=== PATIENT | female | born 2000 | race Two or more races ===

== ENCOUNTER 2024-10-10 14:17 | Emergency (ER) | payer MEDICAID ==
[~2024-10-10] VITALS: Ht 165.1 cm; Wt 66.0 kg
[2024-10-10 14:28] VITALS: BP 130/81
[2024-10-10 14:30] VITALS: BP 125/75
[2024-10-10 14:37] LABS: URINE BILIRUBIN - DIPSTICK Negative (NEGATIVE); URINE BLOOD DIPSTICK Negative (NEGATIVE); URINE GLUCOSE - DIPSTICK Negative (NEGATIVE); URINE KETONE Trace mg/dL (NEGATIVE); URINE NITRITE - DIPSTICK Negative (Negative); URINE PH 8.5 (4.5-8.0); URINE PROTEIN - DIPSTICK Negative (NEG-TRACE); URINE UROBILINOGEN - DIPSTICK 0.2 E.U./dL (0.2)
[2024-10-10 14:38] LABS: URINE COLOR Yellow; URINE LEUK ESTERASE Small (NEGATIVE)
[2024-10-10 14:45] VITALS: BP 114/71
[2024-10-10 14:45] LABS: BASO% 0.4 % (0-3); EOS% 1.1 % (0-8); HEMATOCRIT 36.3 % (37.0-47.0); HEMOGLOBIN 12.2 g/dl (12.0-16.0); IMMATURE GRANULOCYTES 0.4 % (0.0-5.0); LYMPH% 19.6 % (15-41); MEAN CELL VOLUME 90.1 fL CALC (80.0-100.0); MEAN CORPUSCULAR HGB 30.3 pG CALC (26.0-32.0); MEAN CORPUSCULAR HGB CONC 33.6 g/dL CAL (32.0-36.0); MONO% 8.8 % (2-13); NEUT# 3.96 thou/uL (2.00-7.15); NEUT% 69.7 % (42-76); RED BLOOD COUNT 4.03 mill/uL (4.20-5.60)
[2024-10-10 14:45] LABS: URINE BACTERIA FEW hpf; URINE RBC 0-2 RBC/hpf (0-5); URINE SQUAMOUS EPITHELIAL CELL MODERATE EPI/hpf (0-FEW)
[2024-10-10 14:55] LABS: ALBUMIN 4.1 g/dL (3.2-5.0); BILIRUBIN, TOTAL 0.4 mg/dL (0.02-1.3); CREATININE 0.4 mg/dL (0.5-1.0); POTASSIUM 3.8 mmol/l (3.5-5.1); TOTAL PROTEIN 7.3 g/dL (6.3-8.2)
[2024-10-10 15:00] VITALS: BP 119/68
[2024-10-10] MEDS ORDERED: KEFLEX500 MG PO (15:39)
[2024-10-10 16:29] VITALS: BP 119/68
== END 2024-10-10 16:37 | disposition home or self-care (01) ==
LOC: ED 14:17
PROVIDERS: Nurse Practitioner
DX: O23.42 Unspecified infection of urinary tract in pregnancy, second trimester (principal); N39.0 Urinary tract infection, site not specified; O47.02 False labor before 37 completed weeks of gestation, second trimester; Z3A.16 16 weeks gestation of pregnancy